=== PATIENT | female | born 1980 | race Caucasian/White ===

== ENCOUNTER 2021-03-16 15:18 | Inpatient (IN) ==
[2021-03-16 16:22] LABS: Basophils # 0.1 K/mcL (0.0-0.2); Basophils % 0.8 %; Eosinophils # 0.1 K/mcL (0.0-0.6); Eosinophils % 1.3 %; Hematocrit 40.1 % (35.3-44.9); Hemoglobin 13.4 g/dL (11.5-15.4); Immature Granulocytes % 0.2 % (0-4); Lymphocytes # 2.9 K/mcL (0.6-4.6); Lymphocytes % 28.1 %; Mean Corpuscular HGB Conc 33.4 g/dL (31.6-35.5); Mean Corpuscular Volume 89.7 fL (83.0-100.0); Mean Platelet Volume 10.1 fL (9.4-12.4); Monocytes # 0.5 K/mcL (0.0-1.3); Monocytes % 4.7 %; Neutrophils # 6.8 K/mcL (1.6-8.9); Platelet Count 279 K/mcL (140-400); Red Blood Count 4.47 M/mcL (3.82-4.97); Red Cell Distribution Width 12.1 % (11.5-14.5); Segmented Neutrophils % 64.9 %
[2021-03-16 16:23] LABS: White Blood Count 10.4 K/mcL (4.3-11.1)
[2021-03-16 16:31] LABS: Bacteria,Urine Few per hpf (None-Few); Bilirubin,Urine Negative (Negative); Blood,Urine Negative (Negative); Clarity,Urine Turbid (Clear); Color,Urine Yellow (Yellow); Glucose,Urine (UA) Normal (Normal); Ketones,Urine Trace mg/dL (Negative); Leukocyte Esterase,Urine Trace (Negative); Mucus,Urine Few per lpf (None-Few); Nitrite,Urine Negative (Negative); PH,Urine 5.5 pH Units (5.0-8.0); Protein,Urine 50 mg/dL (Neg-Trace); Specific Gravity,Urine > 1.030 (1.010-1.025); Squamous Epithelial Cell,Urine Many per hpf (None-Few)
[2021-03-16 16:36] LABS: Amphetamine Screen,Urine Negative ng/mL (Cutoff=1000); Barbiturate Screen,Urine Negative ng/mL (Cutoff=200); Benzodiazepines Screen,Urine Negative ng/mL (Cutoff=200); Cannabinoid Screen,Urine Negative ng/mL (Cutoff = 50); Cocaine Screen,Urine Negative ng/mL (Cutoff= 300); Opiate Screen,Urine Negative ng/mL (Cutoff=300); Phencyclidine Screen,Urine Negative ng/mL (Cutoff=25)
[2021-03-16 16:45] LABS: Acetaminophen < 10 mcg/mL (10-20); BUN/Creatinine Ratio 21 (6-26); Blood Urea Nitrogen 16 mg/dL (6-20); Calcium 9.2 mg/dL (8.6-10.3); Carbon Dioxide 26 mEq/L (23-29); Chloride 106 mEq/L (98-107); Chol/HDL Ratio 3.3 (0-4.9); Cholesterol 168 mg/dL (< 200); Ethanol < 10 mg/dL (Less than 10); Glucose 87 mg/dL (70-105); HDL Cholesterol 51 mg/dL (40-59); LDL Cholesterol,Calculated 103 mg/dL (< 100); Osmolality,Calculated 289 (280-300); Potassium 3.7 mEq/L (3.5-5.1); Salicylate < 2.5 mg/dL (15.0-30.0); Sodium 139 mEq/L (136-145); Triglycerides 69 mg/dL (< 150); eGFR For African Americans > 60 (> 60); eGFR For Non-African Americans > 60 (> 60)
[2021-03-16 17:15] LABS: Estimated Average Glucose 105 mg/dl; Hemoglobin A1C 5.3 %
[2021-03-16 17:30] LABS: Influenza A PCR Negative (Negative); Influenza B PCR Negative (Negative); Resp. Syncytial Virus PCR Negative (Negative)
[2021-03-16 17:35] LABS: SARS-CoV-2 by PCR (In House) Negative (Negative)
[2021-03-16] MEDS ORDERED: MOM Conc 10 ML UD.LIQ PO PRN (18:29)
[2021-03-16] MEDS ORDERED: Mag Hydrox/Al Hydrox/Simeth 30 ML UDC PO PRN (18:29)
[2021-03-16] MEDS ORDERED: Nicotine 2 MG GUM BC PRN (18:29)
[2021-03-16] MEDS ORDERED: haloperidoL 5 MG TABLET PO PRN (18:29)
[2021-03-16] MEDS ORDERED: Haloperidol Lactate 5 MG/ML VIAL IM PRN (18:29)
[2021-03-16] MEDS ORDERED: *HR* LORazepam 2 MG/ML VIAL IM PRN (18:29)
[2021-03-16] MEDS ORDERED: *HR* LORazepam 1 MG TABLET PO PRN (18:29)
[2021-03-16] MEDS ORDERED: Acetaminophen 325 MG TABLET PO PRN (18:29)
[2021-03-16] MEDS: risperiDONE 1 MG TABLET PO SCH (20:46)
[2021-03-16] MEDS: traZODone 50 MG TABLET PO PRN (20:46)
[2021-03-17] MEDS: Vitamin B Complex/Vit C/Vit E 1 EACH TABLET PO SCH ×2 (08:57→10:24)
[2021-03-17] MEDS: risperiDONE 1 MG TABLET PO SCH ×2 (08:57→10:23)
[2021-03-17] MEDS: traZODone 50 MG TABLET PO PRN (20:02)
[2021-03-17] MEDS: OLANZapine 5 MG TAB.RAPDIS PO SCH (20:02)
[2021-03-17] MEDS ORDERED: clonazePAM 0.5 MG TABLET PO SCH (21:00)
[2021-03-18] MEDS: Vitamin B Complex/Vit C/Vit E 1 EACH TABLET PO SCH (08:51)
[2021-03-18] MEDS: BuPROPion XL (24 HR) 150 MG TABLET PO SCH (08:52)
[2021-03-18] MEDS: clonazePAM 0.5 MG TABLET PO SCH (16:36)
[2021-03-18] MEDS: hydrOXYzine pamoate 25 MG CAPSULE PO PRN (20:10)
[2021-03-18] MEDS: OLANZapine 5 MG TAB.RAPDIS PO SCH (20:10)
[2021-03-19] MEDS ORDERED: polyethylene glycoL 3350 17 GM POWD.PACK PO PRN (08:23)
[2021-03-19] MEDS: BuPROPion XL (24 HR) 150 MG TABLET PO SCH (08:40)
[2021-03-19] MEDS: Vitamin B Complex/Vit C/Vit E 1 EACH TABLET PO SCH (08:40)
[2021-03-19] MEDS: clonazePAM 0.5 MG TABLET PO SCH (11:00)
[2021-03-19] MEDS: hydrOXYzine pamoate 25 MG CAPSULE PO PRN (20:57)
[2021-03-19] MEDS: traZODone 50 MG TABLET PO PRN (20:57)
[2021-03-19] MEDS ORDERED: OLANZapine 5 MG TAB.RAPDIS PO SCH (21:00)
[2021-03-20] MEDS: Vitamin B Complex/Vit C/Vit E 1 EACH TABLET PO SCH (10:57)
[2021-03-20] MEDS: BuPROPion XL (24 HR) 150 MG TABLET PO SCH (10:57)
[2021-03-20] MEDS: *HR* LORazepam 1 MG TABLET PO SCH (16:02)
[2021-03-20 19:52] VITALS: TEMP 98.4
[2021-03-20] MEDS: traZODone 50 MG TABLET PO PRN (20:13)
[2021-03-20] MEDS: hydrOXYzine pamoate 25 MG CAPSULE PO PRN (20:13)
[2021-03-20] MEDS ORDERED: OLANZapine 10 MG TAB.RAPDIS PO SCH (21:00)
[2021-03-21] MEDS: BuPROPion XL (24 HR) 150 MG TABLET PO SCH (08:02)
[2021-03-21] MEDS: Vitamin B Complex/Vit C/Vit E 1 EACH TABLET PO SCH (08:02)
[2021-03-21] MEDS: *HR* LORazepam 1 MG TABLET PO SCH (08:02)
[2021-03-21 08:03] VITALS: BP 96/88; PULSE 82; O2SAT 100
== END 2021-03-21 11:30 | disposition home or self-care (01) | DRG 885 ==
LOC: EMEROOARM 15:18 → 1ANU 18:07
PROVIDERS: ADMIT Psychiatry & Neurology Psychiatry; ATTEND Psychiatry & Neurology Psychiatry